=== PATIENT | female | born 1945 | race Caucasian/White ===

== ENCOUNTER → 2017-03-01 | Outpatient (CLI) | payer MEDICARE, BC ==
[~2017-03-01] MED LIST: ASPIRIN (CHILDR81 MG PO; BRILINTA90 MG PO; CALTRATE 600 +1 EAC1 PO; COLESTID1 G1 PO; COREG12.5 MG PO; CRESTOR20 MG PO; CYMBALTA60 MG PO; IMODIUM2 MG PO; METFORMIN HCL500 MG PO; PRILOSEC20 MG PO; TRILIPIX135 MG PO; TYLENOL325 MG PO; VASOTEC2.5 MG PO; VASOTEC5 MG PO; VITAMIN D2000 UNI1 PO
--- NOTE | ~2017-03-01 | ESTC ---
Cardiac Perfusion Imaging Demographics Patient Name CAREN Eisenberg Gender Female Patient Number [id number] Race Visit Number [id number] [place] [id number] Room Number Accession Number [id number] Height 63 inches Date of 1945 Weight 140 pounds Froy Montesinos MD Interpreting Diana Peck MD Date of study 03/01/2017 Physician Supervising /ALICIA Villarreal NM Technologist TYESHA Ordering Physician Stress echocardiograph technician Stress ECG Reading Vanessa Villarreal Nurse Tamela Enriquez Physician TYESHA RN Patrice Ramires RN The procedure was explained in detail to the patient. Risks, complications and alternative treatments were reviewed. Written consent was obtained. Procedure Procedure Type: Nuclear Stress Test:Exercise, Cardiolite Stress Test Procedure Start time: 03/01/2017 08:15 Indications: Arm pain and Shortness of Breath with Exertion. Risk Factors The patient risk factors include:prior PCI; Conclusions Summary Cardiolite SPECT images demonstrate mild inducible reversible defect involving the inferior wall. No evidence of underlying fixed defect. TID is increased at 1.14 which may serve as a surrogate marker of ischemia. Gated images demonstrate normal left ventricular systolic function without inducible wall motion abnormalities. LVEF is 78% Stress Protocols Resting ECG RST without ST or T wave changes. Resting HR:70 bpm Resting BP:138/62 mmHg Pre-stress physical exam: Patient assessed by Chun Byrd APRN. prior to testing. Stress Protocol:Exercise Peak HR:136 bpm HR response: Appropriate Peak BP:162/70 mmHg BP response: Appropriate Predicted HR: 150 bpm HR/BP product:56029 % of predicted HR: 91 Max exercise: 8.6 METS Test duration:09:20 min Reason for termination:Target heart rate Exercise effort:Good Perceived exertion:17 ECG Findings Sinus tachycardia. With ST depression Lead II, III, AVF, V5, V6. Arrhythmias None Symptoms Complained of Lt. Chest pain and Lt, Arm pain at peak exercise, Pain resolving after [address] depression reslolved with rest. Stress Interpretation The electrocardiographic portion of the stress test was negative for ischemia. Blood pressure response was normal, heart rate response was normal for exertion. The Baker Treadmill Score was 0. This corresponds to a intermediate to high risk stress test. Stress supervision and interpretation provided by Inessa Pineda-Keyana, [employer] . Imaging Results Summed scores - Summed stress score: 9 - Summed rest score: 10 - Summed difference score: -1 Stress ejection Ejection fraction:77 % EDV :52 ml ESV :12 ml Stroke volume :40 ml LV mass :91 gr Imaging Protocols Rest Stress Isotope:Tc99m Sestamibi IV Isotope: Tc99m Sestamibi IV Isotope dose:10.6 mCi Isotope dose:33.1 mCi Date:03/01/2017 07:23 Date:03/01/2017 09:15 Technique: SPECT Technique: Gated Supine SPECT Supine Scan Time:45-60 minutes post Scan Time:15-30 minutes post injection injection Medical History Admission Data Admission date: 03/01/2017 Admission Time: 06:57 Hospital Status: Outpatient. Signatures dtt: Cisco Ortiz (cardio) dtd: 03/01/17 0815 Physician Self Edit
== END | disposition disaster alternative care site (69) ==
LOC: GRAD 06:57 → GLAB 07:00 → GRAD 07:15
DX: I25.10 Atherosclerotic heart disease of native coronary artery without angina pectoris (principal); E78.5 Hyperlipidemia, unspecified; R06.02 Shortness of breath; Z98.61 Coronary angioplasty status
CPT/HCPCS: A9500

== ENCOUNTER 2017-03-12 08:05 | Outpatient (CLI) | payer MEDICARE, BC ==
[~2017-03-12] VITALS: Ht 160 cm; Wt 59.8 kg
--- NOTE | ~2017-03-12 | CATH ---
Cardiac Diagnostic Report Demographics Patient Name CAREN Eisenberg Gender Female Date of 1945 Age 71 year(s) Patient Number [id number] Date of Study 03/12/2017 Visit Number [id number] Room Number G[address] [place] [id number] Ht 160.02 cm Wt 59.8 kg Referring Lindsay Delgado MD Primary Physician Physician Performing Diana Peck MD Secondary Physician Physician Diagnostic Diana Peck MD Assisting Physician Physician Interventional Physician Diamond Polisher Physician Findings and Conclusions Diagnostic Findings and Conclusion 1 vessel CAD Diagnostic Recommendations medical therapy Procedure Description The patient was brought to the diagnostic cardiac catheterization-EP laboratory in the fasting, non-sedated state. Informed consent was obtained in the written and verbal form after the risks and benefits were explained. The patient had no further questions and agreed to proceed. The planned puncture-incision site(s) were shaved and prepped with ChloraPrep and draped in the usual sterile manner. Conscious sedation, supplemental oxygen, and pain control medications were delivered by a registered nurse under physician guidance. Surface ECG rhythm, blood pressure measurement, and pulse oximetry were monitored throughout the procedure. Arterial access. The access site was infiltrated with lidocaine. The vessel was entered with the Seldinger technique. A sheath was advanced into the vessel and used for catheter placement. Selective left coronary angiography. A catheter was advanced into the left coronary vessel ostium under Fluoroscopic guidance. Contrast was injected by hand. Images were obtained in multiple projections. Selective right coronary angiography. A catheter was advanced into the right coronary vessel ostium under fluoroscopic guidance. Contrast was injected by hand. Images were obtained in multiple projections. Left heart catheterization. A catheter was advanced across the aortic valve to the left ventricle under fluoroscopic guidance. Resting hemodynamics were obtained. Arterial artery hemostasis was achieved. The patient was transferred to a regular nursing floor via cart accompanied by a nurse. The patient left the laboratory in stable condition. Diagnostic Cath Status: Urgent Procedure Procedure Type Diagnostic procedure:Angiography:, Coronary Angios w/[facility] Indications: Abnormal cardiolyte. The procedure was explained in detail to the patient. Risks, complications and alternative treatments were reviewed. Written consent was obtained. Medications Reviewed with Patient prior to Procedure. Angiographic Findings Dominance: Right Cardiac Arteries and Lesion Findings LMCA: Normal (0% Stenosis).large wnl LAD: Abnormal.medium, prox 50-60% Diag medium wnl Lesion on Prox LAD: Proximal subsection.60% stenosis . LCx: Normal (0% Stenosis).large ND wnl OM1 medium ok RCA: Normal (0% Stenosis).large Dominant, patent stent PL medium wnl PDA medium wnlThere is a previous stent on Prox RCA Mid subsection. Cardiac Collaterals - collateral flow from the 1st Septal to the R PAV. Coronary Tree Procedure Data Procedure Date Date: 03/12/2017Start: 11:29 AMEnd: 11:47 AM Entry Locations - Retrograde Percutaneous access was performed through the Right Femoral artery (Primary location). A 6 Fr sheath was inserted. Hemostasis was successfully obtained using Perclose ProGlide (Young). Closure Comments: deployed by Destin. Procedure Medications Order and Administration + + +-------+------+ !Time !Medication !Dosage !Route ! + + +-------+------+ !03/12/2017 11:17 AM !Versed !1 mg !I.V. ! + + +-------+------+ !03/12/2017 11:21 AM !Fentanyl !50 mcg !I.V. ! + + +-------+------+ !03/12/2017 11:24 AM !Versed !1 mg !I.V. ! + + +-------+------+ Devices Used - A6 Fr. BS JL 4 Diag. Catheterwas used for:Left coronary angiography. - A6 Fr. BS JR 4 Diag. Catheterwas used for:Right coronary angiography. - A6 Fr. BS Angled Pigtail Diag. Catheterwas used for:LV Pressures. Contrast Material - Isovue 75118 ml Fluoroscopy Time: Diagnostic: 2:30 minutes. Total: 2:30 minutes. Fluoroscopy Dose: Diagnostic: 523 mGy. Total: 523 mGy. Estimated Blood Loss: 4 ml. Medical History Allergies - No known allergies. Risk Factors The patient risk factors include:prior PCI on 02/07/2016;physical activity, hypercholesterolemia, hypertension, family history of premature CAD, orally-treated diabetes mellitus, last creatinine: 0.9 mg/dl, creatinine clearance: 54.91 ml/min, dyslipidemia and former tobacco use. Admission Data Admission Date: 03/12/2017 Admission Time: 08:05 AM Admit Source: Other Insurance Payors: Medicare. Admission Medications + +------+------+ + + + + !Medication !Dosage!Times !Last !Last !Administered !Comments ! ! ! !Per !Delivery !Delivery ! ! ! ! ! !Day !Date !Time ! ! ! + +------+------+ + + + + !Statin (any)! ! ! ! ! ! ! + +------+------+ + + + + !Aspirin ! ! ! ! ! ! ! !(any) ! ! ! ! ! ! ! + +------+------+ + + + + !LAVON ! ! ! ! ! ! ! !Inhibitor ! ! ! ! ! ! ! !(any) ! ! ! ! ! ! ! + +------+------+ + + + + !Beta Toro! ! ! ! ! ! ! !(any) ! ! ! ! ! ! ! + +------+------+ + + + + Clinical Evaluation Leading to Procedure - The patient's CAD presentation was assessed as: Unstable angina. 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 Anti-anginal medications were prescribed during the past two weeks. The medications are: Beta Blockers and Other. Hemodynamics Condition: Rest O2 Consumption: Estimated: 148.58Heart Rate: 69 bpm Pressures (mmHg) +-----+ + !Site !Pressure ! +-----+ + !AO !116/54 (83) ! +-----+ + !LV !128/0 ,10 ! +-----+ + !LV !121/0 ,10 ! +-----+ + !AO !122/45 (79) ! +-----+ + !LV !118/0 ,8 ! +-----+ + Valve Gradients and Areas + +---------+---------+---------+ +---------+ + !Valve !Peak !Mean !Area !Index !Flow !Source ! + +---------+---------+---------+ +---------+ + !Aortic !0 !0 ! ! ! ! ! + +---------+---------+---------+ +---------+ + !Aortic !0 !0 ! ! ! ! ! + +---------+---------+---------+ +---------+ + Shunts Oxygen Values O2 Capacity 156.4 O2 Consumption 148.58 Discharge Data Discharge Date: 03/12/2017 Hospital Status: Outpatient Signatures dtt: Cisco Ortiz (cardio) dtd: 03/12/17 1129 Physician Self Edit
== END 2017-03-12 15:05 | disposition disaster alternative care site (69) ==
LOC: GPCU 08:05 → GCAT 08:05 → GPOC 09:00 → GCAT 15:05 → GPOC 03-14 08:00
PROC: 4A023N7 Measurement of Cardiac Sampling and Pressure, Left Heart, Percutaneous Approach (ICD-10-PCS; principal; 2017-03-12)
PROC: B216YZZ Fluoroscopy of Right and Left Heart using Other Contrast (ICD-10-PCS; 2017-03-12)
DX: I25.110 Atherosclerotic heart disease of native coronary artery with unstable angina pectoris (principal)
CPT/HCPCS: C1760; J1644; J2001; J2250; J3010; J7030